=== PATIENT | female | born 1990 | race Caucasian/White ===

== ENCOUNTER 2019-02-04 10:58 | Emergency (ER) | payer SELFPAY ==
[~2019-02-04] VITALS: Ht 165.1 cm; Wt 68.0 kg
== END 2019-02-04 11:02 | disposition left against medical advice (07) ==
LOC: MED 10:58
DX: R40.4 Transient alteration of awareness (principal); Z53.21 Procedure and treatment not carried out due to patient leaving prior to being seen by health care provider